=== PATIENT | female | born 1960 | race Caucasian/White ===

== ENCOUNTER 2019-08-25 10:19 | Emergency (ER) | payer MEDICARE ==
[2019-08-25 10:59] LABS: HEMATOCRIT 42.6 % (36.0-47.0); HEMOGLOBIN 14.7 g/dL (12.0-15.5); MEAN CORPUSCULAR HEMOGLOBIN 31.6 pg (27.0-33.4); MEAN CORPUSCULAR HGB CONC 34.4 g/dL (32.0-36.0); MEAN CORPUSCULAR VOLUME 92 fl (80-97); PLATELET COUNT 333 10^3/uL (150-450); RED BLOOD COUNT 4.65 10^6/uL (3.72-5.28); RED CELL DISTRIBUTION WIDTH 13.4 % (11.5-14.0); WHITE BLOOD COUNT 4.6 10^3/uL (4.0-10.5)
--- NOTE | 2019-08-25 11:06 | ER Document Report ---
ED General - General Chief Complaint: Breathing Difficulty Stated Complaint: SHORTNESS OF BREATH Time Seen by Provider: 08/25/19 10:35 Primary Care Provider: CRIS YOUNG MD [Primary Care Provider] - Follow up as needed - [facility] Notes: Chief complaint: Shortness of breath and fatigue 59-year-old female with history of hypertension presents for evaluation of dyspnea and fatigue. Patient says she developed watery diarrhea and vomiting 4 days ago and this lasted for approximately 24 hours and then resolved. She subsequently has noticed some dyspnea on exertion and is felt extreme fatigue. Slight dry cough. No sputum production. No fever or chills. No ill contacts. Specifically denies any exposure to anyone who is tested positive for Covid-19. No travel outside area. Patient has a history of hypertension. She denies any known cardiac disease. She denies chest pain. Denies any past history of thromboembolic disease. Patient notes that she has had some chronic lower extremity edema which is very mild and has been present for several months. Her primary provider had suggested echocardiogram about 6 months ago but patient says she is uninsured and could not afford this and therefore has not undergone the testing. Patient is a non-smoker. She denies any history of asthma. - Related Data Allergies/Adverse Reactions: No Known Allergies Allergy (Verified 08/25/19 10:52) Past Medical History - General Information source: Patient - Social History Smoking Status: Never Smoker Frequency of alcohol use: None Drug Abuse: None Lives with: Family Family History: Reviewed & Not Pertinent Patient has suicidal ideation: No Patient has homicidal ideation: No - Past Medical History Cardiac Medical History: Reports: Hx Hypertension Pulmonary Medical History: Reports: None Endocrine Medical History: Denies: Hx Diabetes Mellitus Type 1, Hx Diabetes Mellitus Type 2 Renal/ Medical History: Reports: Hx Kidney Stones Malignancy Medical History: Reports: None Past Surgical History: Reports: Hx Hysterectomy - Immunizations Hx Diphtheria, Pertussis, Tetanus Vaccination: No Review of Systems - Review of Systems Notes: Constitutional: Negative for fever. HENT: Negative for sore throat. Eyes: Negative for visual changes. Cardiovascular: Negative for chest pain. Respiratory: As per HPI. Gastrointestinal: As per HPI. Genitourinary: Negative for dysuria. Musculoskeletal: Negative for back pain. Skin: Negative for rash. Neurological: Negative for headaches, focal weakness or numbness. 10 point ROS negative except as marked above and in HPI. Physical Exam - Vital signs Vitals: Resp BP Pulse Ox 21 H 168/105 H 95 08/25/19 10:26 08/25/19 10:26 08/25/19 10:26 - Notes Notes: GENERAL: Female patient appearing approximately stated age who is dyspneic at rest. SKIN: Good turgor no rashes. HEAD: Normocephalic atraumatic. EYES: PERRLA. EOMI. Conjunctivae and sclerae clear. EARS: CANALS AND TMS CLEAR. NOSE: CLEAR. MOUTH: Moist mucosa. Good dentition. No stridor or edema. No drooling. NECK: Supple. No masses or thyromegaly. No adenopathy. Carotids 2+ without bruits. No JVD. BACK: Symmetrical without tenderness. CHEST: Mildly tachypneic and dyspneic with mild use of accessory muscles. Breath sounds are clear and symmetrical. HEART: Regular rhythm. No murmur gallop or rub. ABDOMEN: Soft nontender without masses, organomegaly or rebound. Bowel sounds n ormally active. No bruits. GENITALIA: Deferred. EXTREMITIES: No edema. No calf tenderness. Cap refill less than 1.5 seconds. Dorsalis pedis and posterior tibial pulses 3+ and symmetrical. NEUROLOGICAL: GCS 15. Alert and oriented x3. Fluent speech. Cranial nerves II through XII intact. Sensorimotor and cerebellar normal. Normal tone. PSYCHIATRIC: Anxious with flat affect. Course - Re-evaluation Re-evalutation: 08/25/19 14:29 The patient clinically looks like she might be mildly dehydrated. She has mild prerenal azotemia on her chemistry profile. She has been hydrated with 2 L of normal saline IV and her tachypnea has resolved. Her oxygenation is normal. Her lungs are clear. Her chest x-ray is normal per radiologist. Her BNP level is normal. EKG showed no acute changes. Troponin and d-dimer are also normal. On reevaluation her respiratory rate is 16 and pulse rate is 66 with a blood pressure of 144/86. In view of the symptoms that she has had we will do an influenza screen. If this is negative she will also have a COVID-19 screen. At any rate I think she is stable for outpatient follow-up. 08/25/19 16:26 Influenza a and B screen negative here. Discharged home on self quarantine. Increase oral fluids. - Vital Signs Vital signs: Temp Pulse Resp BP Pulse Ox 97.6 F 16 135/79 H 100 08/25/19 10:44 08/25/19 15:01 08/25/19 15:01 08/25/19 15:01 - Laboratory Result Diagrams: 08/25/19 10:30 08/25/19 10:30 Laboratory results interpreted by me: 08/25/19 08/25/19 10:30 11:20 Carbonic Acid 0.79 L ABG pH 7.54 H ABG pCO2 26.2 L ABG pO2 107.6 H ABG O2 Saturation 98.5 H BUN 22 H Glucose 116 H Total Protein 8.8 H - EKG Interpretation by Me Additional EKG results interpreted by me: 08/25/19 11:11 EKG from 1058 hrs. reviewed contemporaneously by me with normal appearance russ wing sinus rhythm at a rate of 64 QRS axis -14 degrees normal intervals and no acute ST/T wave changes. Discharge - Discharge Clinical Impression: Dyspnea, Dehydration, Acute viral syndrome Condition: Stable Disposition: HOME, SELF-CARE Instructions: Acetaminophen Additional Instructions: Increase oral fluids. Tylenol as needed. Take prescribed medication as directed. Return here as needed for new or worsening symptoms. Follow-up with your primary care physician. Prescriptions: Albuterol Sulfate [Proair HFA Inhalation Aerosol 8.5 gm MDI] 2 puff IH Q4H PRN #1 mdi PRN Reason: Ondansetron [Zofran Odt 4 mg Tablet] 1 - 2 tab PO Q4H PRN #15 tab.rapdis PRN Reason: For Nausea/Vomiting Referrals: CRIS YOUNG MD [Primary Care Provider] - Follow up as needed
[2019-08-25 11:07] LABS: VENOUS BLOOD BASE EXCESS 0.9 mmol/L; VENOUS BLOOD HCO3 25.4 mmol/L (20-32); VENOUS BLOOD PCO2 39.8 mmHg (35-63); VENOUS BLOOD PH 7.42 (7.30-7.42)
[2019-08-25 11:23] LABS: ABSOLUTE LYMPHOCYTES# (MANUAL) 1.9 10^3/uL (0.5-4.7); ABSOLUTE MONOCYTES # (MANUAL) 0.4 10^3/uL (0.1-1.4); BAND NEUTROPHILS % (MANUAL) 3 % (3-5); BASOPHILS % (MANUAL) 0 % (0-2); EOSINOPHILS % (MANUAL) 0 % (0-6); LYMPHOCYTES % (MANUAL) 41 % (13-45); MONOCYTES % (MANUAL) 9 % (3-13); SEGMENTED NEUTROPHILS % (MAN) 46 % (42-78); TOTAL CELLS COUNTED 100
--- NOTE | 2019-08-25 11:23 | RADIOLOGY REPORT (SQ) ---
EXAM DESCRIPTION: CHEST SINGLE VIEW COMPLETED DATE/TIME: 08/25/2019 11:08 am REASON FOR STUDY: dyspnea COMPARISON: 07/03/2011 EXAM PARAMETERS: NUMBER OF VIEWS: One view. TECHNIQUE: Single frontal radiographic view of the chest acquired. RADIATION DOSE: NA LIMITATIONS: None. FINDINGS: LUNGS AND PLEURA: No opacities, masses or pneumothorax. No pleural effusion. MEDIASTINUM AND HILAR STRUCTURES: No masses. Contour normal. HEART AND VASCULAR STRUCTURES: Heart normal in size. Normal vasculature. BONES: No acute findings. HARDWARE: None in the chest. OTHER: No other significant finding. IMPRESSION: NO ACUTE RADIOGRAPHIC FINDING IN THE CHEST. TECHNICAL DOCUMENTATION: JOB ID: [id number] [employer]- All Rights Reserved Reading location - IP/workstation name: [email or web address]
[2019-08-25 11:24] LABS: ALBUMIN 4.7 g/dL (3.5-5.0); ALKALINE PHOSPHATASE 64 U/L (38-126); ANION GAP 10 (5-19); ASPARTATE AMINO TRANSFERASE 29 U/L (14-36); BILIRUBIN,DIRECT 0.4 mg/dL (0.0-0.4); BILIRUBIN,TOTAL 0.6 mg/dL (0.2-1.3); BLOOD UREA NITROGEN 22 mg/dL (7-20); CALCIUM 9.4 mg/dL (8.4-10.2); CARBON DIOXIDE 25 mmol/L (22-30); CHLORIDE 103 mmol/L (98-107); CREATINE KINASE 52 U/L (30-135); GLUCOSE 116 mg/dL (75-110); PLATELET COMMENT ADEQUATE; POTASSIUM 4.2 mmol/L (3.6-5.0); RBC MORPHOLOGY COMMENT NORMO-CYTIC/CHROMIC; TOTAL PROTEIN 8.8 g/dL (6.3-8.2)
[2019-08-25 11:36] LABS: CREATINE KINASE MB 0.32 ng/mL (<4.55)
[2019-08-25 11:36] LABS: ARTERIAL BLOOD BASE EXCESS 0.5 mmol/L; ARTERIAL BLOOD FIO2 ROOM AIR; ARTERIAL BLOOD H2CO3 0.79 mmol/L (1.05-1.35); ARTERIAL BLOOD HCO3 21.6 mmol/L (20-24); ARTERIAL BLOOD O2 SATURATION 98.5 % (94-98); ARTERIAL BLOOD PCO2 26.2 mmHg (35-45); ARTERIAL BLOOD PH 7.54 (7.35-7.45); ARTERIAL BLOOD PO2 107.6 mmHg (80-100); ARTERIAL BLOOD TOTAL CO2 22.5 mmol/L (21-25)
[2019-08-25] MEDS ORDERED: NORMAL SALINE 1000 ML 1,000 ML IV ONE ×2 (11:36→13:16)
[2019-08-25 11:39] LABS: TROPONIN I < 0.012 ng/mL
[2019-08-25 15:16] LABS: A TYPE INFLUENZA AG NEGATIVE (NEGATIVE); B INFLUENZA AG NEGATIVE (NEGATIVE)
[2019-08-25 16:57] VITALS: BP 132/83
--- NOTE | 2019-08-25 19:51 | EKG REPORT ---
SEVERITY:- NORMAL ECG - SINUS RHYTHM : Confirmed by: Mamadou Blanco MD 25-Aug-2019 19:51:07
== END 2019-08-25 16:55 | disposition home or self-care (01) ==
LOC: ER 10:19
DX: B34.9 Viral infection, unspecified (principal); R06.02 Shortness of breath; E86.0 Dehydration; R05 Cough; R53.83 Other fatigue; I10 Essential (primary) hypertension; Z20.828 Contact with and (suspected) exposure to other viral communicable diseases
CPT/HCPCS: 93005; 99285; 96360; 96361; 36415; 82553; 82803 ×2; 82550; 83735; 85025; 87635; 80053; 84484; 85379; 87804; 83880; 71045; 93010; 36600; J7030